=== PATIENT | female | born 1990 | race Two or more races ===

== ENCOUNTER 2024-10-29 12:32 | Inpatient (IN) | payer MEDICAID, SELFPAY ==
[2024-10-29] VITALS (16 sets, daily range): BP systolic 112–130; BP diastolic 61–83; PULSE 64–90; RESP 14–19; TEMP 36.4–37.1; O2SAT 98–100; BMI 29.3
[2024-10-29] MEDS: RINGERS LACTATED 1000 ML 1,000 ML 125 ML IV ×2 (13:05→14:17)
[2024-10-29 13:34] LABS: Basophils # (Auto) 0.0 Thou/mm3 (0.0-0.2); Basophils % (Auto) 0 % (0-2.5); Eosinophils # (Auto) 0.0 Thou/mm3 (0.0-0.5); Eosinophils % (Auto) 1 % (0-10); Hematocrit 32.3 % (36.0-46.0); Hemoglobin 10.0 g/dL (12.0-16.0); Immature Granulocytes Auto 0.03 Thou/mm3 (0.00-0.00); Lymphocytes # (Auto) 1.2 Thou/mm3 (1.0-4.8); Lymphocytes % (Auto) 14 % (10-50); Mean Corpuscular HGB Conc 31.0 g/dl (31.0-37.0); Mean Corpuscular Hemoglobin 23.5 pg (25.0-35.0); Mean Corpuscular Volume 76 fL (80-100); Monocytes # (Auto) 0.5 Thou/mm3 (0.0-0.8); Monocytes % (Auto) 6 % (0-12); Neutrophils # (Auto) 6.5 Thou/mm3 (1.8-7.7); Neutrophils % (Auto) 78 % (37-80); Nucleated Red Blood Cell # 0.00 Thou/mm3 (0.00-0.00); Nucleated Red Blood Cell % 0 /100 WBC (0); Platelet Count 179 Thou/mm3 (140-440); RDW Standard Deviation 46.3 fL (36.4-46.3); Red Blood Count 4.25 Miln/mm3 (4.00-5.20); White Blood Count 8.3 Thou/mm3 (3.6-11.0)
[2024-10-29 14:03] LABS: Syphilis Nonreactive (Nonreactive)
[2024-10-29] MEDS: FAMOTIDINE INJ 10 MG/ML VIAL 2 ML 20 MG IV (14:17)
[2024-10-29] MEDS: METOCLOPRAMIDE INJ 5 MG/ML VIAL 2 ML 10 MG IVP (14:17)
[2024-10-29] MEDS: ceFAZolin/D5W 2 GM IV 2 GM/100 ML BAG IV (14:17)
--- NOTE | 2024-10-29 14:33 | ESHP_ITS ---
Documentation for date of: 10/29/24 OB Labor/Induct. HPI History of Present Illness : 2 Term pregnancies: 1 pregnancies: 0 Living children: 1 History of Abortions: Spontaneous and Elective: 0 History of sections: Yes History of : No Date of last menstrual period: 01/18/24 ASHLI: 11/04/24 Gestational age based on last menstrual period: 40 History of present illness: 34-year-old 3 para 2-0-0-2 at 39 weeks and 1 day admitted for repeat low-transverse . Patient had previous 2 C-sections. has been otherwise uncomplicated denies any contractions, leaking, bleeding History of Present Dating criteria: LMP confirmed by 2nd trimester US Labs Labs: Positive: Rubella Titre, Negative: RPR, Hepatitis B, HIV, Chlamydia and Gonorrhea and Unknown: Herpes Type 1, Herpes Type 2, Group Beta Strep and Covid-19 Past Medical History Surgical History SURGICAL: Positive Section Meds Home Medications and Allergies Home Medications ?Medication ?Instructions ?Recorded ?Confirmed ?Type Vits W-Ca,Fe,Fa(<1MG) 1 tab PO QDAY #0 tabs 0 11/20/16 12/18/18 History ( Vitamin) Allergies Allergy/AdvReac Type Severity Reaction Status Date / Time NKA* Allergy Uncoded 11/23/16 14:09 OB Exam Physical Exam Vital signs: Pulse BP 82 123/79 10/29/24 13:46 10/29/24 13:46 Constitutional Constitutional: no acute distress Routine HEENT Exam Head: Present normocephalic and atraumatic Eye: Present EOMI and PERRL ENT: Present mucous membranes moist Routine Neck Exam Neck: Present supple and trachea midline Routine Cardiovascular Exam Cardiovascular: Present RRR Routine Abdominal Exam Abdominal: Present soft and normoactive bowel sounds Detailed Labor and Delivery Exam Comments: Category 1 heart tone, no contractions Routine Extremities Exam Extremities: Present full ROM Routine Skin Exam Skin: Present intact, dry and warm Routine Neurological Exam Neurological: Present alert, oriented X3 and CN II-XII intact Routine Psychiatric Exam Psychiatric: Present normal affect and normal thought process OB Results Labs 10/29/24 13:10 Labs: Short CBC 10/29/24 Range/Units 13:10 WBC 8.3 (3.6-11.0) Thou/mm3 Hgb 10.0 L (12.0-16.0) g/dL Hct 32.3 L (36.0-46.0) % Plt Count 179 (140-440) Thou/mm3 Impressions Impression: 34-year-old 3 para 2-0-0-2 at 39 weeks and 1 day for repeat low- transverse Hemoglobin 10 Vital signs stable GTT within normal limits Anatomy within normal limits OB Assessment & Plan Additional Plan Additional Plan Comment: Admitted for repeat low-transverse DVT prophylaxis Antibiotic prophylaxis
[2024-10-29] MEDS: OXYTOCIN in NS 20 units 20 UNIT/1,000 ML BAG 125 UNIT IV ×2 (16:44→20:11)
[2024-10-29] MEDS: IBUPROFEN TAB 400 MG TABLET 800 MG PO (20:11)
[2024-10-29 21:33] LABS: Basophils # (Auto) 0.1 Thou/mm3 (0.0-0.2); Basophils % (Auto) 0 % (0-2.5); Eosinophils # (Auto) 0.1 Thou/mm3 (0.0-0.5); Eosinophils % (Auto) 1 % (0-10); Hematocrit 31.2 % (36.0-46.0); Hemoglobin 10.0 g/dL (12.0-16.0); Immature Granulocytes Auto 0.04 Thou/mm3 (0.00-0.00); Lymphocytes # (Auto) 1.5 Thou/mm3 (1.0-4.8); Lymphocytes % (Auto) 13 % (10-50); Mean Corpuscular HGB Conc 32.1 g/dl (31.0-37.0); Mean Corpuscular Hemoglobin 24.3 pg (25.0-35.0); Mean Corpuscular Volume 76 fL (80-100); Monocytes # (Auto) 0.8 Thou/mm3 (0.0-0.8); Monocytes % (Auto) 7 % (0-12); Neutrophils # (Auto) 9.2 Thou/mm3 (1.8-7.7); Neutrophils % (Auto) 79 % (37-80); Nucleated Red Blood Cell # 0.00 Thou/mm3 (0.00-0.00); Nucleated Red Blood Cell % 0 /100 WBC (0); Platelet Count 166 Thou/mm3 (140-440); RDW Standard Deviation 46.0 fL (36.4-46.3); Red Blood Count 4.11 Miln/mm3 (4.00-5.20); White Blood Count 11.5 Thou/mm3 (3.6-11.0)
--- NOTE | 2024-10-29 23:38 | PD.GYNPROC ---
Operative Note - [employer] Procedure Date of procedure: 10/29/24 Procedure Performed: repeat Low transverse Csection Indication: Previous Csection Pre-Op diagnosis: same Post-Op diagnosis: same Anesthesia type: Spinal Procedure description: Informed consent was obtained and the patient was taken to the operating room.?Identity was confirmed by double identifiers and she was placed on the operating table.The abdomen and perineum were prepped in the usual sterile fashion and a Cormier catheter was placed to continuous drainage.?Sterile drapes were applied.?A Pfannenstiel skin incision was made with a scalpel and carried to the subcutaneous fat up to the rectus fascia.? The rectus fascia was incised on either side of the midline and the incisions were extended bilaterally.?The fascia was gently dissected off the ventral surface of the rectus muscle only superiorly. peritoneum opened after making sure no adhesions are there underneath. bladder flap carefully created, then hysterotomy incision made and extended bluntly with finger. placenta edge was Rupture of membranes revealed clear fluid. The baby was found in cephalic presentation and was delivered via vertex. the umbilical cord , was doubly clamped, divided and the infant was handed over to the waiting team. The placenta delivered by controlled cord traction . The interior of the uterus was now thorougly cleaned of all blood and debris and membranes.?The? hysterotomy was closed using 0 vicryl suture in double layers. Once the repair was completed the hysterotomy was inspected, was noted to be adequately hemostatic. Then the rectus fascia was repaired using Vicryl 0 in a running fashion.? The subcutaneous layer was now, approximated with 3-0 vicryl in double layers.? All bleeding points were cauterized using the Bovie.?The skin was closed using 4-0 Monocryl in a subcuticular fashion.? The skin was cleaned and a sterile dressing was applied. The patient was now undraped, the abdomen and back were thoroughly cleaned and she was now transferred to the recovery room in a stable Estimated blood loss (ml): 300 Surgical staff Operation Date: 10/29/24 15:10 Case Staff SOLID SURFACE FABRICATOR: Frank Chu RN First Assistant: Сергей Vyas Diagnosis Problem List Completed Was Problem List Reviewed/Reconciled?: Yes
--- NOTE | 2024-10-29 23:45 | PD.LDDELS ---
Data ([facility]) Data Hx Section: Yes : 3 Term: 1 : 0 Livin Abortions: Spontaneous & Theraputic: 0 Delivery Data ([facility]) Labor Data Induction/Augmentation Agent: None ROM date: 10/29/24 ROM time: 15:14 Amniotic membrane rupture type: Artificial Amniotic fluid description: Clear Delivery Data delivery date: 10/29/24 delivery time: 15:15 Gestational age (weeks): 39 Gestational age (days): 1 Placenta delivery date: 10/29/24 Placenta delivery time: 15:16 Delivered by: Hota Delivery nurse: Louis Lane nurse: Alicia Commercial Relief Driver at delivery: No Support person(s) at delivery: spouse Other staff at delivery: Svetlana NOLAN RT Chaps Delivery Method Delivery method: Low Transverse Presentation: Vertex Anesthesia Type Anesthesia Type: None Anesthesia type: Spinal Placenta Placenta delivery description: Manual Removal Cord blood sent to lab: Yes cord blood collection: Cord Blood Type Episiotomy Episiotomy description: None EBL Estimated blood loss (ml): 300 Umbilical Cord cord description: 3 Vessels Data ([facility]) [place] Data order: 1 's gender: Female Identification band number: [id number] weight (gms): 3180 g Weight (pounds): 7 lbs and 0.2 ozs length: 50 cm 1 minute: 9 5 minutes: 9
[2024-10-30] MEDS: HYDROcodone/APAP 5/325 TABLET 1 TAB PO ×4 (02:20→20:26)
[2024-10-30] MEDS: RINGERS LACTATED 1000 ML 1,000 ML 125 ML IV (03:48)
[2024-10-30 04:09] VITALS: BP 113/78; PULSE 86; RESP 16; TEMP 37; O2SAT 97
--- NOTE | 2024-10-30 07:49 | ESPR_ITS ---
Subjective Subjective Interval history: Patient seen at the bedside doing well. Denies any nausea vomiting, fever patient has been tolerating diet. Cormier was removed and she is voiding without any problems patient is ambulating has not passed gas yet Exam Vital Signs Temp Pulse Resp BP Pulse Ox O2 Del Method 98.6 F 86 16 113/78 97 Room Air 10/30/24 04:09 10/30/24 04:09 10/30/24 04:09 10/30/24 04:09 10/30/24 04:09 10/30/24 04:09 Constitutional Constitutional: no acute distress Routine HEENT Exam Head: Present normocephalic and atraumatic Eye: Present EOMI and PERRL ENT: Present mucous membranes moist Routine Neck Exam Neck: Present supple and trachea midline Routine Respiratory Exam Respiratory: Present chest non-tender, lungs clear, normal breath sounds and no resp distress Routine Cardiovascular Exam Cardiovascular: Present RRR Routine Abdominal Exam Abdominal: Present soft and normoactive bowel sounds Routine Extremities Exam Extremities: Present full ROM Routine Skin Exam Skin: Present intact, dry and warm Routine Neurological Exam Neurological: Present alert, oriented X3 and CN II-XII intact Routine Psychiatric Exam Psychiatric: Present normal affect and normal thought process Objective Labs 10/29/24 21:15 Labs: Laboratory Results - last 24 hr 10/29/24 10/29/24 13:10 21:15 WBC 8.3 11.5 H RBC 4.25 4.11 Hgb 10.0 L 10.0 L Hct 32.3 L 31.2 L MCV 76 L 76 L MCH 23.5 L 24.3 L MCHC 31.0 32.1 RDW Std Deviation 46.3 46.0 Plt Count 179 166 Neut % (Auto) 78 79 Lymph % (Auto) 14 13 [place] % (Auto) 6 7 Eos % (Auto) 1 1 Baso % (Auto) 0 0 Neut # (Auto) 6.5 9.2 H Lymph # (Auto) 1.2 1.5 [place] # (Auto) 0.5 0.8 Eos # (Auto) 0.0 0.1 Baso # (Auto) 0.0 0.1 Immature Gran # (Auto) 0.03 H 0.04 H Absolute Nucleated RBC 0.00 0.00 Immature Gran % 0 0 Nucleated RBC % 0 0 Syphilis Serology Nonreactive Blood Type O Positive Antibody Screen NEGATIVE Blood Bank Wristband ID Yes Assessment & Plan Assessment Comment Assessment comment: 34-year-old status post repeat low-transverse , postop day 1 Vital signs stable Preop and postop hemoglobin is 10 Meeting postop milestones Plan Comment Plan Comment: Continue postop care Anticipate discharge tomorrow Time Spent With Patient Time: Total time spent is greater than 50% in coordination of care (as documented) at patient's floor/unit and/or counseling patient:
[2024-10-30 08:00] VITALS: BP 122/79; PULSE 94; RESP 18; TEMP 36.7; O2SAT 97
[2024-10-30 11:14] VITALS: BP 123/81; PULSE 87; RESP 17; TEMP 36.8; O2SAT 97
[2024-10-30] MEDS: IBUPROFEN TAB 400 MG TABLET 800 MG PO ×2 (14:32→22:36)
[2024-10-30 16:00] VITALS: BP 122/77; PULSE 92; RESP 18; TEMP 36.7; O2SAT 97
[2024-10-30 20:00] VITALS: BP 111/74; PULSE 99; RESP 16; TEMP 37; O2SAT 99
[2024-10-31] VITALS: BP 109/69; PULSE 83; RESP 18; TEMP 36.6; O2SAT 96
[2024-10-31 04:00] VITALS: BP 115/75; PULSE 84; RESP 18; TEMP 36.7; O2SAT 98
[2024-10-31 08:00] VITALS: BP 119/81; PULSE 94; RESP 18; TEMP 36.7; O2SAT 98
[2024-10-31] MEDS: IBUPROFEN TAB 400 MG TABLET 800 MG PO (08:08)
--- NOTE | 2024-10-31 10:50 | PD.LDDS ---
DS: Providers Provider Date of admission: 10/29/24 12:32 Primary care physician: Eleuterio Turner MD Admitting Provider: Verenice Diamond MD Attending Provider on Admission: Verenice Diamond MD Consults: 10/29/24 14:28 Referral Routine Comment: Attending Provider on DC: Verenice Diamond MD Discharging Provider: Verenice Diamond MD DS: Diagnosis Problem List Completed Was Problem List Reviewed/Reconciled?: Yes Summary/Hosp Course Brief History: 34-year-old 3 para 3, s/p RLTCS at 39 weeks and 1 day, here for 2 days . Pt denied any fever , vag bleeding , has met all PO milestones Peripartum Data Delivery Method: Low Transverse Episiotomy Description: None Procedures: Procedures Operation Date: 10/29/24 15:10 Actual Procedure Side Surgeon p in OB Verenice Diamond MD Status at Discharge Cognitive/behavioral status at discharge: stable Time Spent with Patient Time attestation: Total time spent providing and/or coordinating discharge services: Exam Vital Signs Temp Pulse Resp BP Pulse Ox O2 Del Method 98.0 F 94 18 119/81 98 Room Air 10/31/24 08:00 10/31/24 08:00 10/31/24 08:00 10/31/24 08:00 10/31/24 08:00 10/31/24 08:00 Constitutional Constitutional: no acute distress Routine HEENT Exam Head: Present normocephalic and atraumatic Eye: Present EOMI and PERRL ENT: Present mucous membranes moist Routine Neck Exam Neck: Present supple and trachea midline Routine Respiratory Exam Respiratory: Present chest non-tender, lungs clear, normal breath sounds and no resp distress Routine Cardiovascular Exam Cardiovascular: Present RRR Routine Abdominal Exam Abdominal: Present soft and normoactive bowel sounds Routine Extremities Exam Extremities: Present full ROM Routine Skin Exam Skin: Present intact, dry and warm Routine Neurological Exam Neurological: Present alert, oriented X3 and CN II-XII intact Routine Psychiatric Exam Psychiatric: Present normal affect and normal thought process Discharge Plan Plan Patient Disposition: HOME (Self Care) Prescriptions/Referrals Prescriptions/Med Rec: New acetaminophen-codeine 300-15 mg tablet 1 tab PO Q12H PRN (Reason: pain) Qty: 14 0RF ibuprofen 800 mg tablet 800 mg PO Q8H PRN (Reason: pain) Qty: 30 0RF No Action Vits W-Ca,Fe,Fa(<1MG) ( Vitamin) 1 TAB tablet 1 tab PO QDAY Qty: 0 ibuprofen 800 mg tablet 800 mg PO TID MDD 6 PRN (Reason: pain) Qty: 30 0RF Referrals: Eleuterio Turner MD [Primary Care Provider] - Patient/Caregiver Discharge Instructions Education Materials: C Section Dc Print Language: Pashto Stand Alone Forms: Mary Award Info., Patient Portal Info Letter Discharge Order Discharge Orders: Discharge (Routine); Ordered 10/31/24 Ordered By: Verenice Diamond Planned Discharge Date 10/31/24
[2024-10-31 12:00] VITALS: BP 112/75; PULSE 90; RESP 18; TEMP 36.7; O2SAT 98
[2024-10-31] MEDS: HYDROcodone/APAP 5/325 TABLET 1 TAB PO (12:12)
[2024-10-31 15:55] VITALS: BP 118/80; PULSE 90; RESP 18; TEMP 36.9; O2SAT 98
== END 2024-10-31 15:55 | disposition home or self-care (01) | DRG 540 ==
LOC: S4SX 12:51 → S4NX 15:44
PROVIDERS: Admitting Provider Student in an Organized Health Care Education/Training Program; PCP Family Medicine; Visit Provider Student in an Organized Health Care Education/Training Program
PROC: 10D00Z1 Extraction of Products of Conception, Low, Open Approach (ICD-10-PCS; CPT 59514; principal; 2024-10-29 14:30)
DX: O34.211 Maternal care for low transverse scar from previous cesarean delivery (principal); Z37.0 Single live birth; Z3A.39 39 weeks gestation of pregnancy
CPT/HCPCS: 36415; 85025; 86780; 86850; 86900; 86901; A4314; A4649; J0689; J2274; J2371; J2590; J2765; J3010; J3490; J7120; A9270; J2270